=== PATIENT | female | born 1945 | race Caucasian/White ===

== ENCOUNTER 2018-07-26 01:08 | Observation (INO) | payer OTHER ==
[~2018-07-26] VITALS: Ht 162.6 cm; Wt 58.1 kg
[2018-07-26] MEDS ORDERED: ATENOLOL (01:12)
[2018-07-26] MEDS ORDERED: LEVOTHYROXINE (01:13)
[2018-07-26 01:14] VITALS: BP 153/84
[2018-07-26 01:39] LABS: ABSOLUTE BASOPHILS 0.1 thou/uL (0.0-0.2); ABSOLUTE EOSINOPHILS 0.2 thou/uL (0.0-0.7); ABSOLUTE LYMPHOCYTES 1.4 thou/uL (0.8-5.3); ABSOLUTE MONOCYTES 0.4 thou/uL (0.0-1.2); BASOPHILS 1.1 %; EOSINOPHILS 2.8 %; HEMATOCRIT 33.6 % (37.0-47.0); HEMOGLOBIN 11.6 gm/dL (12.0-15.0); LYMPHOCYTES 22.7 %; MCH 30.2 pg (26.0-34.0); MCHC 34.4 g/dL (28.0-37.0); MCV 87.9 fL (80.0-100.0); MONOCYTES 6.8 %; NUCLEATED RBCS 0 /100WBC; PLATELET COUNT* 154 thou/uL (150-400); POLYS 66.6 %; RBC 3.82 mil/uL (4.20-5.00); RDW-CV 14.3 % (10.5-14.5); WBC 6.1 thou/uL (4.0-11.0)
[2018-07-26 01:57] LABS: ANION GAP 6 mmol/L (7-16); BUN 13 mg/dL (7-18); CALCIUM 8.9 mg/dL (8.5-10.1); CHLORIDE 105 mmol/L (98-107); CO2 29 mmol/L (21-32); GLUCOSE 122 mg/dL (70-99); POTASSIUM 3.7 mmol/L (3.5-5.1); SODIUM 140 mmol/L (136-145)
--- NOTE | 2018-07-26 01:58 | NUR ---
AFTER SECOND NITRO TAB, PT DID CONVERT TO BIGEMINY AND HER PRESSURE DROPPED. iN APPROXIMATELY 1-2 MINUTES, HEART RATE WENT BACK INTO SINUS ARRYTHMIA AND A FEW MINUTES LATER, PRESSURE DID RETURN TO 109/57
[2018-07-26 02:07] LABS: ALBUMIN 3.8 g/dL (3.4-5.0); ALKALINE PHOSPHATASE 71 U/L (46-116); LIPASE 221 U/L (73-393); MAGNESIUM 1.8 mg/dL (1.8-2.4); NT-PRO BRAIN NAT PEPTIDE 755 pg/mL (<300); SGOT 18 U/L (15-37); SGPT 14 U/L (30-65); TOTAL BILIRUBIN 0.4 mg/dL (<0.1-1.0); TOTAL PROTEIN 6.9 g/dL (6.4-8.2); TROPONIN-I LEVEL <0.06 ng/mL (<0.06)
[2018-07-26 03:10] VITALS: BP 135/60
[2018-07-26] MEDS ORDERED: TENORMIN50 MG PO (04:24)
[2018-07-26] MEDS ORDERED: SYNTHROID88 MCG PO (04:26)
[2018-07-26] MEDS ORDERED: ASPIR 8181 M1 PO (04:27)
--- NOTE | 2018-07-26 04:56 | NUR ---
RECEIVED REPORT FROM MENGRN AT 0252. PT ARRIVED TO 226 VIA CART AT 0315. PT VOICED NO CONCERNS. DENIES PAIN, CLOTHES MARKER IN PLACE, TRACING SINUS ARRHYTHMIA/BIGEMINY ON CLOTHES MARKER. HOURLY ROUNDING COMPLETED. MEDICATION REQ COMPLETED. CALL LIGHT WITHIN REACH.NEGATIVE SEPSIS SCREENING.
--- NOTE | 2018-07-26 08:00 | NUR ---
RECIEVED REPORT. ASSUMED CARE OF PT AT 0730. VSS. CARDIAC MONTOIRING IN PLACE SR WITH PAC. AM ASSESSMENT AND VITALS COMPLETED CHARTED. PT ALERT AND ORIENTED. PT ON RA. IV SALINE LOCKED. PT ON RA. PT REPORTS CONSTANT CHEST PAIN/FLUTTERING FROM LAST NIGHT TO THIS AM. PT INFORMED OF PLAN OF CARE INCLUDING NPO FOR CARDIOLOGY CONSULT. PT COMMUNICATES UNDERSTANDING. CALL LIGHT IS WITHIN REACH. [facility] ONT[facility] TO [facility] FOR DURATION OF SHIFT.
[2018-07-26 08:01] VITALS: BP 141/58
--- NOTE | 2018-07-26 10:11 | EKG ---
[place] [address] ELECTROCARDIOGRAM REPORT Name: ANNE MARIE BEATTY Room: [address] ADM IN .R.#: [id number] Admission: 07/26/18 Attend Phys: Chuck Meredith MD Discharge: Date of : 43 Report #: [id number] THIS REPORT FOR: //name// [facility] ED Test Date: 2018-07-26 Test Time: 01:13:55 Pat Name: ANNE MARIE JUNIORIVAN Department: Room: [facility] Gender: F It Programmer: [facility] : 1945 Requested By: Shaun Nj Order Number: [id number] MD: Venkata Lake Measurements Intervals Lititz Rate: 82 P: 67 MA: 161 QRS: 9 QRSD: 96 T: 81 QT: 364 QTc: 425 Interpretive Statements Sinus rhythm Atrial premature complexes Borderline ST depression, anterolateral leads No previous ECG available for comparison Electronically Signed On 07-26-2018 10:11:11 CDT by Venkata Lake [email or web address] <ELECTRONICALLY SIGNED> By: Venkata Lake MD, [facility] 07/26/18 1011 2 2 Venkata Lake MD, FACC /EPI
[2018-07-26 11:58] VITALS: BP 144/58
--- NOTE | 2018-07-26 14:24 | NUR ---
MET WITH PT. SHE STATES SHE LIVES WITH SPOUSE AND IS INDEPENDENT AND ACTIVE. USES NO EQUIPMENT OR HOME CARE. SHE PLANS TO [place]. WILL FOLLOW
--- NOTE | 2018-07-26 17:22 | NUR ---
VSS. CARDIAC MONITORING IN PLACE WITH NO CHANGES THIS SHIFT. PT REMIANS ON RA. IV SALINE LOCKED. PT DENIES ANY COMPLAINTS OF PAIN OR DISCOMFORT. PT IS UP AD RENETTA. PT HAD STRESS TEST. CALL LIGHT IS WITHIN REACH. WILL CONTINUE TO [facility] FOR DURATION OF SHFIT.
[2018-07-26 20:00] VITALS: BP 122/62
[2018-07-27] VITALS: BP 122/62
[2018-07-27 04:00] VITALS: BP 120/56
--- NOTE | 2018-07-27 05:04 | NUR ---
ASSUMED CARE OF PT AFTER REPORT AT 1930. PT A&OX4. VSS. PHYSICAL ASSESSMENT COMPLETED AND CHARTED. PT ON RA WITH 98% O2 SAT. PT TRACING SR ON TELE. PT UP ADLIB TO RESTROOM. PT DENIES ANY PAIN OR DISCOMFORT. PT RESTED WELL ON BED. HS REST & SAFETY GOALS ACHIEVED. CALL LIGHT WITHIN REACH. BED IN LOW POSITION.
[2018-07-27 06:01] LABS: CHOLESTEROL 160 mg/dL (<200); HDL CHOLESTEROL 67 mg/dL (>40); LDL CHOLESTEROL 83 mg/dL (<100); SERUM ASSESSMENT Clear; TC:HDL 2.4 Ratio (Not establshd); TRIGLYCERIDE 54 mg/dL (<150); VLDL 11 mg/dL (<40)
[2018-07-27 08:15] VITALS: BP 131/51
--- NOTE | 2018-07-27 11:08 | CARDNUC ---
[place] [address] CARDIAC NUCLEAR IMAGING REPORT Name: ANNE MARIE BEATTY Room: [address] Talat#: [id number] Admission: 07/26/18 Attend Phys: Chuck Meredith, Discharge: Date of : 43 Date of Service: 07/27/18 1108 Report #: [id number] THIS REPORT FOR: //name// APPROVED REPORT Study performed: 07/26/2018 13:36:00 Indication: Chest pain, Bigeminy Patient Location: In-Patient Room #: 226 Stress Tech: Jenniffer Flores Stress Nurse: Tiffany Harrison RN Ht: 5 ft 4 in Wt: 128 lbs BSA: 1.62 m2 BMI: 21.96 Medical History Medical History: Arrhythmia, Hypothyroidism, HTN Medications: ASA 325mg, NTG, Atenolol Allergies: No known drug allergies Cardiac Risk Factors: Age, HTN, FHX of CAD Previous Cardiac Procedures: None Pretest Chest Pain Characteristics: Exertional Chest pain Exercise History: Indeterminate Physical Disabilities: Generalized weakness, exertional chest pain present. Meds Held (24 hrs): Atenolol Resting Data Rest SPECT myocardial perfusion imaging was performed in supine position 30 minutes following the intravenous injection of 12.0 mCi of Tc-99m Sestamibi. Time of rest injection: 14:45 The images were gated to evaluate regional wall motion and calculate left ventricular ejection fraction. Administration Route: IV Administration Site: Right AC Pharmacologic Stress Pharmacologic stress test was performed by injecting Regadenoson 0.4 mg IV push over 10-15 seconds immediately followed by the intravenous injection of 36.0 mCi of Tc-99m Sestamibi. Time of stress injection: 16:45 Administration Route: IV Administration Site: [place] [address] CARDIAC NUCLEAR IMAGING REPORT Name: ANNE MARIE BEATTY Room: [address] Atif Gilliland#: [id number] Admission: 07/26/18 Attend Phys: Chuck Meredith, Discharge: Date of : 43 Date of Service: 07/27/18 1108 Report #: [id number] Heart Rate at time of stress injection: 113 bpm. Gated Stress SPECT was performed 40 minutes after stress injection. The images were gated to evaluate regional wall motion and calculate left ventricular ejection fraction. Prone imaging was performed. Stress Test Details Stress Test: Pharmacologic stress testing performed using 0.4 mg of regadenoson per 5 mL given IV over 10 seconds. Reason for pharmacologic stress test: physical limitation. HR Max Heart Rate (APMHR): 146 bpm Resting HR: 82 bpm Target HR (85% APMHR): 124 bpm Max HR Achieved: 113 bpm % of APMHR: 77 Recovery HR: 100 bpm HR response to stress: Normal HR response to stress BP Resting BP: 144/86 mmHg Recovery BP: 147/79 mmHg BP response to stress: Normal blood pressure response to stress. ECG Resting ECG: Sinus Rhythm Stress ECG: Sinus Rhythm ST Change: None Recovery ECG: Sinus Rhythm Clinical Reason for Termination: Completed protocol Stress Symptoms: Dyspnea, Lightheaded, Flushed Exercise duration: 0 min 0 sec Exercise capacity: 1.00 METs Nurse Comments Patient stated she did not feel like she was stable / balanced enough to walk on treadmill, too unsteady. Patient tolerated sitting Lexiscan well with minimal side effects list above, which resolved with caffeine during recovery. Patient stable with no complaints at end of test. Patient escorted via wheelchair with staff to [facility] for images. [place] [address] CARDIAC NUCLEAR IMAGING REPORT Name: ANNE MARIE BEATTY Room: [address]#: [id number] Admission: 07/26/18 Attend Phys: Chuck Meredith, Discharge: Date of : 43 Date of Service: 07/27/18 1108 Report #: [id number] negative for ischemia Study Quality Study: Good Artifact: No artifact Lung Uptake: Normal Study Data At rest, the left ventricular ejection fraction was 71%.. Post stress, the left ventricular ejection was 75%.. SSS: 2 SRS: 5 SDS: -3 TID = 0.80. Perfusion Normal perfusion on both the stress and rest images. Wall Motion normal all segments Nuclear Conclusion ECG Findings: negative for ischemia Clinical Findings: negative for ischemia Nuclear Findings: negative for ischemia Exercise Capacity: not assessed Left Ventricular Function: normal Risk Study: low Normal objective pharmacologic nuclear stress test <Conclusion> negative for ischemia <ELECTRONICALLY SIGNED> By: Emmanuel Culver MD, FACC 07/27/18 1108 1108 Emmanuel Culver MD, FACC /INF
[2018-07-27 11:14] VITALS: BP 131/51
[2018-07-27 12:00] VITALS: BP 123/57
--- NOTE | 2018-07-27 13:33 | NUR ---
PT CARE ASSUMED AT 0730. SAT MAINTAINED IN RA. ALERT AND ORIENTEDX4. UP ADLIB. VSS. SR WITH PVCS AND PACS RUNNING ON TELE MONITOR. PT INFORMED ABOUT THE PLAN OF CARE. CALL LIGHT WITHIN REACH AND FALL PRECAUTIONS MAINTAINED. DENIES ANY CHEST PAIN AND SOB AT THE MOMENT. WILL CONTINUE TO MONITOR.
--- NOTE | 2018-07-27 13:42 | 2DMMODE ---
[place] [address] 2 D/M-MODE ECHOCARDIOGRAM Name: ANNE MARIE BEATTY Room: [address] Atif Gilliland#: [id number] Admission: 07/26/18 Attend Phys: Chuck Meredith, Discharge: Date of : 43 Date of Service: 07/27/18 1342 Report #: [id number] THIS REPORT FOR: //name// APPROVED REPORT Study performed: 07/27/2018 10:04:05 EXAM: Comprehensive 2D, Doppler, and color-flow Echocardiogram Patient Location: In-Patient Room #: [facility] Status: routine BSA: 1.62 HR: 59 bpm BP: 131/51 mmHg Rhythm: NSR Other Information Study Quality: Good Indications Chest Pain bigeminy 2D Dimensions IVSd: 10.73 (7-11mm) LVOT Diam: 20.97 (18-24mm) LVDd: 41.25 mm PWd: 9.62 (7-11mm) Ascending Ao: 30.54 (22-36mm) LVDs: 30.40 (25-40mm) Aortic Root: 33.41 mm Volumes Left Atrial Volume (Systole) LA ESV Index: 31.90 mL/m2 Aortic Valve AoV Peak Walt.: 1.38 m/s AO Peak Gr.: 7.56 mmHg LVOT Max P.42 mmHg AO Mean Gr.: 3.79 mmHg LVOT Mean P.11 mmHg LVOT Max V: 0.78 m/s AO V2 VTI: 25.89 cm LVOT Mean V: 0.47 m/s HERNAN (VTI): 2.11 cm2 LVOT V1 VTI: 15.79 cm Mitral Valve E/A Ratio: 1.59 MV Decel. Time: 215.48 [place] [address] 2 D/M-MODE ECHOCARDIOGRAM Name: ANNE MARIE BEATTY Room: [address] M.R.#: [id number] Admission: 07/26/18 Attend Phys: Chuck Meredith, Discharge: Date of : 43 Date of Service: 07/27/18 1342 Report #: [id number] MV E Max Walt.: 0.59 m/s MV PHT: 62.49 ms MVA (PHT): 3.52 cm2 TDI E/Lateral E': 6.56 E/Medial E': 9.83 Medial E' Walt.: 0.06 m/s Lateral E' Walt.: 0.09 m/s Pulmonary Valve PV Peak Walt.: 0.84 m/s PV Peak Gr.: 2.82 mmHg Tricuspid Valve RAP Estimate: 5.00 mmHg TR Peak Gr.: 27.11 mmHg RVSP: 32.00 mmHg PA Pressure: 32.00 mmHg Left Ventricle The left ventricle is normal size. There is normal LV segmental wall motion. There is normal left ventricular wall thickness. Left ventricular systolic function is normal. The left ventricular ejection fraction is within the normal range. LVEF is 55-60%. The left ventricular diastolic function is normal. Right Ventricle The right ventricle is normal size. The right ventricular systolic function is normal. Atria Left atrium is moderately dilated. The right atrium size is normal. Aortic Valve The aortic valve is normal in structure. No aortic regurgitation is present. There is no aortic valvular stenosis. Mitral Valve The mitral valve is normal in structure. Trace mitral regurgitation. No evidence of mitral valve stenosis. Tricuspid Valve The tricuspid valve is normal in structure. Moderate tricuspid regurgitation. Mild pulmonary hypertension. Pulmonic Valve The pulmonary valve is normal in structure. [place] [address] 2 D/M-MODE ECHOCARDIOGRAM Name: VERNONIVANANNE MARIE Fragoso [address] [id number] Admission: 07/26/18 Attend Phys: Chuck Meredith, Discharge: Date of : 43 Date of Service: 07/27/18 1342 Report #: [id number] valvular regurgitation. Great Vessels The aortic root is normal in size. IVC is normal in size and collapses >50% with inspiration. Pericardium There is no pericardial effusion. <Conclusion> LVEF is 55-60%. There is normal LV segmental wall motion. There is no aortic valvular stenosis. No aortic regurgitation is present. Moderate tricuspid regurgitation. Mild pulmonary hypertension. Left atrium is moderately dilated. <ELECTRONICALLY SIGNED> By: Emmanuel Culver MD, FACC 07/27/18 134 41 41 Emmanuel Culver MD, FACC /INF
--- NOTE | 2018-07-27 14:28 | NUR ---
PT ALERT AND ORIENTED X4. SAT MAINTAINED IN RA. DISCHARGE ORDER RECIEVED. PT EDUCATED ON FOLLOW UP AND MEDICATIONS. IV LOCK OUT. SMALL ANIMAL VETERINARIAN RETURNED TO THE TELE UNIT. PT DISCHARGED IN WHEELCHAIR.
--- NOTE | 2018-07-28 15:13 | CON ---
[address] [address] CONSULTATION Name: ANNE MARIE BEATTY Room: [address] Atif Gilliland#: [id number] Admission: 07/26/18 Attend Phys: Chuck Meredith MD Discharge: 07/27/18 Date of : 43 Report #: [id number] THIS REPORT FOR: //name// CC: Samuel Meredith DATE OF SERVICE: 07/26/2018 HISTORY OF PRESENT ILLNESS: The patient is a 73-year-old white female who I was asked to see in the hospital after she complained of chest pain. No old records are available. However, the patient states that years ago, she was having episodes of increased heart rate. 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 She apparently had a nuclear stress test at that time showing no significant coronary artery disease. She is not very active at this time. She states she was doing well until last night. She was watching TV when she felt an ache in her chest. She denied any radiation of the pain associated with shortness of breath, diaphoresis, nausea. She denied any rash. She has had no cough, blood in her stool. She did have some belch with the episode. This chest discomfort was off and on most of the night. She finally came to the hospital last night and was admitted. She also noticed an irregular heartbeat, but no syncope. She has had no edema. PAST MEDICAL HISTORY: Significant for cholecystectomy. There is no history of hypertension, diabetes, hyperlipidemia. MEDICATIONS: Include aspirin, atenolol and Synthroid. ALLERGIES: She has no known drug allergies. FAMILY HISTORY: Father had heart attack. SOCIAL HISTORY: She is . She and her live in [place]. No smoking or alcohol abuse. REVIEW OF SYSTEMS: She has had no history of stroke, asthma, peptic ulcer disease, liver disease, kidney disease or cancer other than skin cancer. She does wear glasses. No psychiatric illness. PHYSICAL EXAMINATION: GENERAL: Revealed an elderly female lying in bed. She appeared in no distress. VITAL SIGNS: She had a blood pressure of 140/60, pulse 70. She is afebrile. HEENT: She was anicteric, conjunctiva pink. Mucous membranes moist. NECK: Veins nondistended. No carotid bruits. Neck supple. CHEST: Clear to auscultation. CARDIOVASCULAR: Regular rate and [place] [address] CONSULTATION Name: ANNE MARIE BEATTY Fouzia [address] [id number] Admission: 07/26/18 Attend Phys: Chuck Meredith MD Discharge: 07/27/18 Date of : 43 Report #: [id number] ABDOMEN: Soft. EXTREMITIES: Had no edema. Posterior tibial pulse 2+ bilaterally. SKIN: Warm, dry. NEUROLOGIC: Nonfocal. LYMPH: No adenopathy. MUSCULOSKELETAL: No joint effusion. DIAGNOSTIC DATA: ECG last night she was noted to have a sinus rhythm with frequent PACs in a pattern of atrial bigeminy. Her 12-lead ECG also showed PACs and there was nonspecific ST-segment changes. LABORATORY DATA: Last night in the Emergency Room, sodium 140. Troponins is all 0.06. White blood cell count 6.1, hemoglobin 11.6. She had portable chest x-ray last night that showed normal heart size, clear lung montero. IMPRESSION AND RECOMMENDATIONS: 1. Chest pain. Atypical for angina. No evidence of acute myocardial infarction. Suspect noncardiac. 2. Premature atrial contractions. The patient has been on a beta dalton. I would consider sending the patient home with an event recorder. <ELECTRONICALLY SIGNED> By: Venkata Lake MD, FACC 07/28/18 1513 1528 [id number] Lake MD, FACC /nt
== END 2018-07-27 14:00 | disposition home or self-care (01) ==
LOC: M.ERS 01:08 → M.TBA-ER 02:13 → M.2W 02:13
PROVIDERS: Emergency Medicine Emergency Medical Services; Internal Medicine Cardiovascular Disease
DX: R07.89 Other chest pain (principal); I49.1 Atrial premature depolarization; R00.8 Other abnormalities of heart beat; E03.9 Hypothyroidism, unspecified; Z90.49 Acquired absence of other specified parts of digestive tract